=== PATIENT | male | born 1990 | race Caucasian/White ===

== ENCOUNTER 2018-07-23 07:21 | Emergency (ER) | payer MEDICARE, BC ==
[2018-07-23 07:35] VITALS: BP 123/77
[2018-07-23] MEDS ORDERED: HYDROmorphone 1 MG/ML Syringe IVPUSH ONE (07:41)
[2018-07-23] MEDS ORDERED: Metoclopramide 10 MG/2 ML SDV IVPUSH ONE (07:41)
[2018-07-23] MEDS ORDERED: Sodium Chloride 0.9% 1,000 ML IV SCH (07:45)
[2018-07-23] MEDS ORDERED: Ketorolac 30 MG/ML SDV IVPUSH SCH (07:45)
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
--- NOTE | 2018-07-23 08:59 | CT ---
CT abdomen and pelvis Technique: Multiple axial sections were obtained from above the dome of the diaphragm inferiorly through the pubic symphysis. Intravenous and oral contrast was not utilized. Study has been performed as a ureteral stone protocol. Comparison: Prior CT abdomen and pelvis study of 08/21/15. Findings: 4 small nonobstructing calculi are seen within the left kidney. Largest nonobstructing stone measures approximately 2.8 mm. Right kidney shows 2 small nonobstructing calculi. Largest nonobstructing stone within the right kidney measures 4 mm. Calcification is seen within the right side of the pelvis located approximately 2-3 cm from the UVJ. This is felt compatible with slightly obstructing distal right ureteral stone measuring approximately 2.5 mm. Finding causes only minimal prominence of the right ureter. Small portion of the visualized lung bases show nothing acute. Noncontrast appearance of the liver and spleen appears within normal limits. Adrenal glands show no nodule. Pancreas is within normal limits as seen. Gallbladder contains no calcified gallstones. Aorta shows no aneurysm. No retroperitoneal adenopathy or mesenteric abnormalities are seen. No pelvic mass or adenopathy is seen. No free fluid or inflammatory change is seen within the abdomen or pelvis. Mild increased stool is noted throughout the colon. Appendix is seen and is normal in size. Bone window settings were reviewed which appear within normal limits for the patient's age. Impression: 1. 2.5 mm slightly obstructing distal right ureteral stone located approximately 2-3 cm from the UVJ. 2. Multiple small nonobstructing calculi within both kidneys. 3. Increased stool throughout the colon. 4. Other normal findings as noted above. Diagnostic code #3
== END 2018-07-23 09:38 | disposition home or self-care (01) ==
LOC: JD.ED 07:21
DX: N20.2 Calculus of kidney with calculus of ureter (principal); E10.9 Type 1 diabetes mellitus without complications; F17.210 Nicotine dependence, cigarettes, uncomplicated; Z86.73 Personal history of transient ischemic attack (TIA), and cerebral infarction without residual deficits
CPT/HCPCS: 74176; 81001; 96361; 96374; 96375; 99284; J1170; J1885; J2765; J7040

== ENCOUNTER 2024-03-23 07:34 | Day surgery (SDC) | payer MEDICARE, BC ==
[~2024-03-23 07:34] MED LIST: Midazolam 1 MG/ML 2 ML SDV ONE; Ropivacaine 0.5% 5 MG/ML 30 ML SDV ONE; Sodium Chloride 0.9% 10 ML Syringe FLUSH PRN; fentaNYL 100 MCG/2 ML SDV ONE
[2024-03-23] MEDS: Lactated Ringers 1,000 ML IV SCH (08:15)
[2024-03-23] MEDS: oxyCODONE ER 10 MG TAB.ER PO ONE (08:16)
[2024-03-23] MEDS: Pregabalin 25 MG Cap PO ONE (08:17)
[2024-03-23] MEDS: Acetaminophen 325 MG Tab PO ONE (08:17)
[2024-03-23] MEDS ORDERED: Propofol 200 MG/20 ML SDV ONE (08:44)
[2024-03-23] MEDS: Albuterol/Ipratropium 3.0-0.5 MG/3 ML Neb Soln NEB ONE (08:49)
[2024-03-23] MEDS ORDERED: ceFAZolin 2 GM Vial ONE (09:17)
[2024-03-23] MEDS ORDERED: Ondansetron 4 MG/2 ML SDV ONE (09:24)
[2024-03-23] MEDS ORDERED: Lactated Ringers 1,000 ML IV ONE (09:45)
[2024-03-23] MEDS ORDERED: ePHEDrine 50 MG/ML SDV ONE (09:50)
[2024-03-23] MEDS: VANCOmycin 1 GM SDV ONE (10:14)
[2024-03-23] MEDS: Tranexamic Acid 1,000 MG/10 ML Vial ONE (10:14)
[2024-03-23] MEDS: Morphine 8 MG, EPINEPHrine 0.3 MG, Cefuroxime 750 MG, Ketorolac 30 MG, Sodium Chloride ... PRN (10:14)
[2024-03-23] MEDS: Ondansetron 4 MG/2 ML SDV IVPUSH ONE (12:01)
[2024-03-23] MEDS: oxyCODONE 5 MG Tab PO PRN ×2 (13:22→18:50)
[2024-03-23] MEDS ORDERED: Naloxone 0.4 MG/ML SDV IVPUSH PRN (16:11)
[2024-03-23] MEDS ORDERED: Cyclobenzaprine 10 MG Tab PO PRN (16:11)
[2024-03-23] MEDS ORDERED: Ondansetron 4 MG/2 ML SDV IVPUSH PRN (16:11)
[2024-03-23] MEDS ORDERED: oxyCODONE 5 MG Tab PO PRN (16:11)
[2024-03-23] MEDS ORDERED: Glucagon,Human Recombinant 1 MG Vial SUBCUT SCH (16:15)
[2024-03-23] MEDS: Albuterol/Ipratropium 3.0-0.5 MG/3 ML Neb Soln ONE (16:32)
[2024-03-23] MEDS: Sodium Chloride 0.9% 10 ML Syringe FLUSH SCH (16:45)
[2024-03-24] MEDS ORDERED: Melatonin 3 MG Tab PO PRN (01:11)
[2024-03-24 06:07] VITALS: PULSE 98
[2024-03-24] MEDS: Losartan 25 MG Tab PO SCH (07:26)
[2024-03-24 07:28] VITALS: BP 111/58
[2024-03-24] MEDS ORDERED: Insulin Lispro 100 Unit/ML 3 ML KwikPen SUBCUT SCH ×2 (09:00)
[2024-03-24] MEDS: oxyCODONE 5 MG Tab PO PRN (09:28)
== END 2024-03-24 12:14 | disposition home or self-care (01) ==
LOC: JD.SDS 07:34 → JD.MS 16:28 → JD.SDS 03-24 12:14
PROVIDERS: ATTEND Orthopaedic Surgery
DX: M16.11 Unilateral primary osteoarthritis, right hip (principal); E10.9 Type 1 diabetes mellitus without complications; J45.909 Unspecified asthma, uncomplicated; F17.210 Nicotine dependence, cigarettes, uncomplicated; Z79.899 Other long term (current) drug therapy
CPT/HCPCS: 0055T; 27130; 73501; 94760; 97116; 97162; 97530; A9270; C1713; C1776; J0171; J0690; J0697; J1885; J2250; J2272; J2405; J2704; J2795; J3010; J7120; 01214; J3490; J7620-GY

== ENCOUNTER 2024-03-25 04:12 | Emergency (ER) | payer MEDICARE, BC ==
[2024-03-25 05:24] VITALS: BP 140/83; PULSE 92
== END 2024-03-25 05:00 | disposition home or self-care (01) ==
LOC: JD.ED 04:12
DX: G89.18 Other acute postprocedural pain (principal); M25.551 Pain in right hip; F17.210 Nicotine dependence, cigarettes, uncomplicated; Z86.73 Personal history of transient ischemic attack (TIA), and cerebral infarction without residual deficits; E10.9 Type 1 diabetes mellitus without complications; Z79.4 Long term (current) use of insulin; Z79.899 Other long term (current) drug therapy; W01.0XXA Fall on same level from slipping, tripping and stumbling without subsequent striking against object, initial encounter; Y93.01 Activity, walking, marching and hiking; Y92.009 Unspecified place in unspecified non-institutional (private) residence as the place of occurrence of the external cause
CPT/HCPCS: 73502-26-RT; 73502-RT; 99283

== ENCOUNTER 2024-05-23 10:36 | Emergency (ER) | payer MEDICARE, BC ==
[2024-05-23] MEDS ORDERED: Sodium Chloride 0.9% 10 ML Syringe FLUSH PRN (10:55)
[2024-05-23 11:08] LABS: BASOPHILS ABSOLUTE AUTO 0.1 K/mm3 (0.0-0.2); BASOPHILS PERCENT AUTO 0.5 % (0.0-1.0); EOSINOPHILS PERCENT AUTO 0.1 % (0.0-6.0); HEMATOCRIT 46.9 % (42.0-52.0); HEMOGLOBIN 15.5 gm/dl (14.0-18.0); IMMATURE GRAN ABSOLUTE AUTO 0.05 K/mm3 (0.00-0.05); IMMATURE GRAN PERCENT AUTO 0.5 % (0.0-0.4); LYMPHOCYTES PERCENT AUTO 10.4 % (24.0-44.0); MEAN CORPUSCULAR HEMOGLOBIN 29.6 pg (28.0-32.0); MEAN CORPUSCULAR VOLUME 89.7 fl (83.0-99.0); MEAN PLATELET VOLUME 8.9 fl (9.4-12.4); MONOCYTES ABSOLUTE AUTO 0.4 K/mm3 (0.0-0.8); MONOCYTES PERCENT AUTO 4.2 % (0.0-8.0); NEUTROPHILS ABSOLUTE AUTO 7.8 K/mm3 (1.8-7.7); NEUTROPHILS PERCENT AUTO 84.3 % (41.0-71.0); PLATELET COUNT,PLT 381 K/mm3 (150-400); RED BLOOD CELL COUNT 5.23 M/mm3 (4.52-5.90); WHITE BLOOD CELL COUNT,WBC 9.22 K/mm3 (3.9-11.3)
[2024-05-23 11:09] LABS: APPEARANCE,URINE CLOUDY (Clear); BILIRUBIN,URINE 1+ (Negative); COLOR,URINE AMBER (Yellow); GLUCOSE,URINE NEGATIVE (Negative); KETONES,URINE 1+ (Negative); LEUKOCYTE ESTERASE,URINE NEGATIVE (Negative); NITRITE,URINE NEGATIVE (Negative); OCCULT BLOOD,URINE 3+ (Negative); PH,URINE 8.5 (5.0-8.0); PROTEIN,URINE 2+ (Negative)
[2024-05-23] MEDS: Ketorolac 30 MG/ML SDV IVPUSH ONE (11:09)
[2024-05-23] MEDS: Ondansetron 4 MG/2 ML SDV IVPUSH ONE (11:09)
[2024-05-23] MEDS: Sodium Chloride 0.9% 1,000 ML IV SCH (11:11)
[2024-05-23] MEDS: HYDROmorphone 0.5 MG/0.5 ML Syringe IVPUSH ONE (11:11)
[2024-05-23 11:31] LABS: ALBUMIN 3.6 g/dl (3.4-5.0); ANION GAP 13.5 (5-15); BILIRUBIN TOTAL 0.4 mg/dL (0.2-1.0); EST CRCL DRUG DOSING (CG) 119.88 mL/min; POTASSIUM,K 3.5 mEq/L (3.5-5.1); PROTEIN TOTAL,TP 7.3 g/dl (6.4-8.2)
[2024-05-23 11:43] LABS: RBC,URINE TOO NUMEROUS TO CNT /hpf (0-5)
[2024-05-23 11:44] LABS: BACTERIA,URINE FEW /hpf (FEW); EPITHELIAL CELLS,URINE 0-5 /hpf (0-5); MUCUS,URINE MODERATE /hpf (FEW); WBC,URINE 0-5 /hpf (0-5)
[2024-05-23 13:32] VITALS: BP 124/75; PULSE 78
== END 2024-05-23 12:05 | disposition home or self-care (01) ==
LOC: JD.ED 10:36
DX: N13.2 Hydronephrosis with renal and ureteral calculous obstruction (principal); E10.9 Type 1 diabetes mellitus without complications; Z79.4 Long term (current) use of insulin
CPT/HCPCS: 36415; 74176; 80053; 81001; 83690; 85025; 96361; 96374; 96375; 99284; J1885; J2405; J7030